=== PATIENT | male | born 1990 | race Caucasian/White ===

== ENCOUNTER 2017-11-10 22:05 | Emergency (ER) | payer BC ==
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
[2017-11-10 22:31] LABS: CHLORIDE,CL 107 mmol/L (98-110); SODIUM,NA 141 mmol/L (136-146)
[2017-11-10] MEDS ORDERED: Diphtheria,Pertussis(Acell),Tetanus Vaccine 0.5 ML Syringe IM ONE (23:04)
[2017-11-10] MEDS ORDERED: Sodium Chloride 0.9% 1,000 ML IV ONE (23:06)
[2017-11-10] MEDS ORDERED: cefTRIAXone 1 GM in Premix Bag 1 BAG IV ONE (23:06)
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
== END 2017-11-10 23:39 | disposition other institution (70) ==
LOC: MW.ED 22:05
DX: S62.395B Other fracture of fourth metacarpal bone, left hand, initial encounter for open fracture (principal); Z23 Encounter for immunization; W32.0XXA Accidental handgun discharge, initial encounter
CPT/HCPCS: 36415; 71045; 73130; 80053; 85025; 90471; 90715; 93005; 96374; 99285; G0390; J0696; J7040; 99284

== ENCOUNTER 2025-07-20 07:21 | Day surgery (SDC) | payer BC ==
[~2025-07-20 07:21] MED LIST: Sodium Chloride 0.9% 10 ML Syringe FLUSH PRN; Sodium Chloride 0.9% 2.5 ML Syringe FLUSH PRN
[2025-07-20] MEDS ORDERED: propofoL 500 MG/50 ML 50 ML ONE (07:28)
[2025-07-20] MEDS: Lactated Ringers 1,000 ML IV SCH (08:00)
== END 2025-07-20 10:00 | disposition home or self-care (01) ==
LOC: MW.SDS 07:21
PROVIDERS: ATTEND Surgery
DX: K64.8 Other hemorrhoids (principal)
CPT/HCPCS: 45378; J2704; J7120

== ENCOUNTER 2025-09-05 08:41 | Day surgery (SDC) | payer BC ==
[~2025-09-05 08:41] MED LIST changes: +Albuterol 0.083% 2.5 MG/3 ML Neb Soln NEB PRN; +Cisatracurium Besylate 10 MG/5 ML SDV ONE; +Midazolam 1 MG/ML 2 ML SDV ONE; +Morphine 10 MG/ML SDV ONE; +Naloxone 0.4 MG/ML SDV IVPUSH PRN; +Ondansetron 4 MG/2 ML SDV IVPUSH PRN; +Propofol 200 MG/20 ML SDV ONE; +Ropivacaine 0.5% 5 MG/ML 30 ML SDV ONE; -Sodium Chloride 0.9% 10 ML Syringe FLUSH PRN; -Sodium Chloride 0.9% 2.5 ML Syringe FLUSH PRN; +ceFAZolin 2 GM in Water For Injection, Sterile 20 ML IVPUSH ONE; +dexmedeTOMIDine HCl 200 MCG/2 ML SDV ONE; +fentaNYL 100 MCG/2 ML SDV ONE; +fentaNYL 50 MCG/ML SDV IVPUSH PRN
[2025-09-05] MEDS: Lactated Ringers 1,000 ML IV SCH (09:05)
[2025-09-05] MEDS ORDERED: Ondansetron 4 MG/2 ML SDV ONE (10:04)
== END 2025-09-05 13:18 | disposition home or self-care (01) ==
LOC: MW.SDS 08:41
PROVIDERS: ATTEND Surgery
DX: K40.90 Unilateral inguinal hernia, without obstruction or gangrene, not specified as recurrent (principal); Z87.891 Personal history of nicotine dependence
CPT/HCPCS: 49650; A9270; J0665; J0690; J1308; J1596; J2003; J2272; J2405; J2704; J2710; J2795; J3010; J7120; 00830; 64488; J2250; J3490